=== PATIENT | female | born 2005 | race African-American/Black ===

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

== ENCOUNTER 2024-12-10 14:50 | Outpatient (CLI) | payer BC | END 2024-12-10 14:51 | disposition home or self-care (01) | LOC: SCSRAD 14:50 | PROVIDERS: ATTEND Family Medicine | DX: R07.9 Chest pain, unspecified (principal) | CPT/HCPCS: 71046 ==